=== PATIENT | male | born 1955 | race Caucasian/White ===

== ENCOUNTER 2019-09-28 06:24 | Day surgery (SDC) | payer OTHER ==
[~2019-09-28] VITALS: Ht 188 cm; Wt 170.9 kg
[2019-09-28] VITALS (10 sets, daily range): BP systolic 101–148; BP diastolic 62–81
[~2019-09-28 06:24] MED LIST: ALLO300T2 PO; APIX5TAB PO; BUDE10.2 IH; FAMO20TA8 PO; INDO50CA97 PO; IPRAHFA IH; IPRNEB IH; LOSA50TA2 PO; METO50 PO; SODIUM CHLORIDE 0.9% 1000ML 1,000 ML IV ONE
[2019-09-28] MEDS ORDERED: FURO20TA4 PO (06:35)
[2019-09-28] MEDS ORDERED: ATROVENT HFA IH (06:35)
[2019-09-28] MEDS ORDERED: METO-391 PO (06:35)
[2019-09-28] MEDS ORDERED: AMIO200T5 PO (06:35)
[2019-09-28] MEDS ORDERED: LOSA25TA41 PO (06:36)
[2019-09-28 07:01] LABS: BASOPHILS % (AUTO) 0.6 % (0.0-5.0); EOSINOPHILS % (AUTO) 4.8 % (0.0-8.0); LYMPHOCYTES % (AUTO) 26.9 % (21.0-51.0); MEAN CORPUSCULAR HEMOGLOBIN 30.3 pg (27.0-33.0); MEAN CORPUSCULAR HGB CONC 32.8 g/dL (32.0-36.0); MEAN CORPUSCULAR VOLUME 92.3 fL (79-99); MONOCYTES % (AUTO) 12.4 % (3.0-13.0); NEUTROPHILS % (AUTO) 54.5 % (40.0-77.0); PLATELET COUNT (AUTO) 243 K/uL (130-400); RED BLOOD CELL COUNT(AUTO) 5.09 MIL/uL (4.50-6.20); WHITE BLOOD COUNT (AUTO) 6.3 K/uL (4.8-10.8)
[2019-09-28 07:10] LABS: CREATININE 1.1 mg/dL (0.5-1.5); POTASSIUM 4.2 mmol/L (3.5-5.1)
[2019-09-28] MEDS ORDERED: METO-409 PO (07:13)
[2019-09-28] MEDS ORDERED: IPRNEB IH (07:13)
[2019-09-28] MEDS ORDERED: BUDE10.2 IH (07:13)
[2019-09-28 07:40] LABS: INR 0.99 (0.85-1.15); PARTIAL THROMBOPLASTIN TIME 29.4 SEC (26.3-35.5); PROTHROMBIN TIME 10.7 SEC (9.6-11.6)
--- NOTE | 2019-09-28 08:50 | NUR ---
TIMEOUT DR TOTH ARRIVED. TIMEOUT DONE WITH MD AND PATIENT. JERMAINE GAR CRNA AND DENNIS FRY RN ALSO IN THE ROOM.
--- NOTE | 2019-09-28 09:00 | NUR ---
PROCEDURE CARDIOVERSION PROCEDURE STARTED.
--- NOTE | 2019-09-28 09:18 | NUR ---
CARDIOVERSION CARDIOVERSION WITH ANESTHESIA PERFORMED AT BEDSIDE BY DR TOTH TIME OUT DONE AT 0850 START TIME 0900 EXTERNAL SHOCK TIME 200 JOULES AT 0904 PT DID NOT CONVERT EXTERNAL SHOCK TIME 360 JOULES AT 0905 PT CONVERTED PROCEDURE END TIME 09 RECOVERY STARTED AT 0918 PATIENT TOLERATED WELL WITH NO DISCOMFORT. PT V/S STABLE AND IN SINUS ANA. BOTH DR ALBERTO AND JERMAINE GAR CRNA LEFT ROOM AT 0920. SPOKE TO PATIENT AND FOLLOW UP PLAN.
--- NOTE | 2019-09-28 09:20 | NUR ---
MD DR TOTH OUT OF THE ROOM AND D/C ORDERS GIVEN. PT TO CONTINUE HOME MEDS, F/U IN 2 WKS AND MAY LEAVE AT 10 AM
--- NOTE | 2019-09-28 10:10 | NUR ---
DISCHARGE PT TAKEN OUT VIA W/C IN NO DISTRESS.
== END 2019-09-28 10:10 | disposition home or self-care (01) ==
LOC: DAH 06:24
PROVIDERS: ATTEND Internal Medicine Cardiovascular Disease
DX: I48.19 Other persistent atrial fibrillation (principal); G47.30 Sleep apnea, unspecified; I11.0 Hypertensive heart disease with heart failure; I50.9 Heart failure, unspecified; I25.10 Atherosclerotic heart disease of native coronary artery without angina pectoris; Z88.0 Allergy status to penicillin; Z79.01 Long term (current) use of anticoagulants; Z79.899 Other long term (current) drug therapy
CPT/HCPCS: 36415; 80048; 85025; 85610; 85730; 92960; 93005 ×2; A4215; A4216; A4221; A4222; A4223 ×3; A4606; A4663; J7030

== ENCOUNTER → 2020-01-02 | Outpatient (CLI) | payer OTHER ==
[~2020-01-02] MED LIST changes: +AMIO200T5 PO; +FURO20TA4 PO; -INDO50CA97 PO; -IPRAHFA IH; +LOSA25TA41 PO; -LOSA50TA2 PO; +METO-409 PO; -METO50 PO; -SODIUM CHLORIDE 0.9% 1000ML 1,000 ML IV ONE
== END | disposition home or self-care (01) ==
LOC: SHCH 09:06
PROVIDERS: ATTEND Internal Medicine Cardiovascular Disease
DX: I51.7 Cardiomegaly (principal); I50.22 Chronic systolic (congestive) heart failure
CPT/HCPCS: 93306; 93356

== ENCOUNTER 2021-03-13 06:21 | Day surgery (SDC) | payer BC ==
[2021-03-12 09:02] LABS: BASOPHILS % (AUTO) 0.4 % (0.0-5.0); EOSINOPHILS % (AUTO) 4.2 % (0.0-8.0); HEMATOCRIT 41.2 % (42-54); LYMPHOCYTES % (AUTO) 29.4 % (21.0-51.0); MEAN CORPUSCULAR HEMOGLOBIN 31.2 pg (27.0-33.0); MEAN CORPUSCULAR HGB CONC 32.5 g/dL (32.0-36.0); MONOCYTES % (AUTO) 12.7 % (3.0-13.0); NEUTROPHILS % (AUTO) 52.5 % (40.0-77.0); PLATELET COUNT (AUTO) 249 K/uL (130-400); RED BLOOD CELL COUNT(AUTO) 4.29 MIL/uL (4.50-6.20); RED CELL DISTRIBUTION WIDTH 14.7 % (11.0-15.5); WHITE BLOOD COUNT (AUTO) 4.8 K/uL (4.8-10.8)
[2021-03-12 09:12] LABS: INR 1.04 (0.85-1.15); PROTHROMBIN TIME 11.3 SEC (9.6-11.6)
[2021-03-12 09:13] LABS: PARTIAL THROMBOPLASTIN TIME 29.1 SEC (26.3-35.5)
[2021-03-12 09:16] LABS: CREATININE 1.1 mg/dL (0.5-1.5); POTASSIUM 4.3 mmol/L (3.5-5.1)
[~2021-03-13] VITALS: Ht 188 cm; Wt 170.2 kg
[2021-03-13] VITALS (8 sets, daily range): BP systolic 120–151; BP diastolic 67–94
[~2021-03-13 06:21] MED LIST changes: -AMIO200T5 PO; +AMIO200T68 PO; -IPRNEB IH
[2021-03-13] MEDS ORDERED: LIDOCAINE PF 100MG/5ML (2%) SYRINGE 5ML ONE (07:59)
[2021-03-13] MEDS ORDERED: PROPOFOL 10 MG/ML 20ML VIAL IV ONE ×2 (07:59→08:29)
[2021-03-13] MEDS ORDERED: MIDAZOLAM HCL 1 MG/ML 2ML VIAL ONE (07:59)
[2021-03-13] MEDS ORDERED: 0.9%NACL 1000ML 1,000 ML IV SCH (08:00)
== END 2021-03-13 09:35 | disposition home or self-care (01) ==
LOC: DAH 06:21
PROVIDERS: ATTEND Internal Medicine Cardiovascular Disease
DX: I48.19 Other persistent atrial fibrillation (principal); Z20.822 Contact with and (suspected) exposure to COVID-19; R00.1 Bradycardia, unspecified; I10 Essential (primary) hypertension; I25.10 Atherosclerotic heart disease of native coronary artery without angina pectoris; G47.30 Sleep apnea, unspecified; E66.01 Morbid (severe) obesity due to excess calories; K21.9 Gastro-esophageal reflux disease without esophagitis; Z79.01 Long term (current) use of anticoagulants; Z88.0 Allergy status to penicillin; Z98.890 Other specified postprocedural states; Z86.73 Personal history of transient ischemic attack (TIA), and cerebral infarction without residual deficits; Z86.19 Personal history of other infectious and parasitic diseases; Z68.42 Body mass index [BMI] 45.0-49.9, adult; Z79.899 Other long term (current) drug therapy
CPT/HCPCS: 36415; 80048; 85025; 85610; 85730; 87635; 92960; 93005 ×2; A4215; A4216; A4221; A4222; A4223 ×3; A4606; A4663; C9803; J2001; J2250; J2704 ×2; J7030; 99156; 99157

== ENCOUNTER → 2023-03-05 | Outpatient (CLI) | payer MEDICARE | END | disposition home or self-care (01) | LOC: SHCH 14:13 | PROVIDERS: ATTEND Internal Medicine Cardiovascular Disease | DX: I48.91 Unspecified atrial fibrillation (principal) | CPT/HCPCS: 93306 ==

== ENCOUNTER 2023-05-12 05:59 | Observation (INO) | payer MEDICARE ==
[2023-05-06 09:07] LABS: BASOPHILS # (AUTO) 0.02 K/uL (0.00-0.20); BASOPHILS % (AUTO) 0.3 % (0.0-5.0); EOSINOPHILS # (AUTO) 0.21 K/uL (0.00-0.70); EOSINOPHILS % (AUTO) 3.4 % (0.0-8.0); HEMATOCRIT 42.3 % (42-54); IMMATURE GRANULOCYTE ABSOLUTE 0.03 K/uL (0-1); LYMPHOCYTES # (AUTO) 1.2 K/uL (1.0-4.8); LYMPHOCYTES % (AUTO) 19.6 % (21.0-51.0); MEAN CORPUSCULAR HEMOGLOBIN 32.4 pg (27.0-33.0); MEAN CORPUSCULAR HGB CONC 34.3 g/dL (32.0-36.0); MEAN CORPUSCULAR VOLUME 94.6 fL (79-99); MONOCYTES # (AUTO) 0.7 K/uL (0.1-1.0); MONOCYTES % (AUTO) 11.2 % (3.0-13.0); PLATELET COUNT (AUTO) 223 K/uL (130-400); RED BLOOD CELL COUNT(AUTO) 4.47 MIL/uL (4.50-6.20); RED CELL DISTRIBUTION WIDTH 15.5 % (11.0-15.5); WHITE BLOOD COUNT (AUTO) 6.2 K/uL (4.8-10.8)
[2023-05-06 09:11] VITALS: BP 112/60; PULSE 71; RESP 18
[2023-05-06 09:13] LABS: CREATININE 1.1 mg/dL (0.5-1.5); POTASSIUM 3.9 mmol/L (3.5-5.1)
[2023-05-06 09:15] LABS: INR 0.95 (0.85-1.15); PROTHROMBIN TIME 11.1 SEC (9.6-11.6)
[2023-05-06 09:16] LABS: PARTIAL THROMBOPLASTIN TIME 37.6 SEC (26.3-35.5)
[2023-05-12] VITALS (28 sets, daily range): BP systolic 80–119; BP diastolic 47–73; PULSE 59–72; RESP 10–20; O2SAT 94–96
[~2023-05-12] VITALS: Ht 188 cm; Wt 146.2 kg
[~2023-05-12 05:59] MED LIST changes: -BUDE10.2 IH; -FAMO20TA8 PO; +FAMO40TA7 PO; -LOSA25TA41 PO; +LOSA50TA64 PO; +METH-386 PO; +METO-408 PO; -METO-409 PO; +NIFE-39 PO; +ROSU10TA28 PO
[2023-05-12] MEDS ORDERED: 0.9%NACL 1000ML 1,000 ML IV ONE (06:47)
[2023-05-12] MEDS ORDERED: MIDAZOLAM HCL 1 MG/ML 2ML VIAL ONE (06:58)
[2023-05-12] MEDS ORDERED: DEXAMETHASONE SOD PHOSPHATE 10MG/ML 1ML VIAL ONE (06:58)
[2023-05-12] MEDS ORDERED: PHENYLEPHRINE HCL 10 MG/ML 1ML VIAL IV ONE ×2 (06:58→12:15)
[2023-05-12] MEDS ORDERED: SUCCINYLCHOLINE CHLORIDE 20 MG/ML 10 ML VIAL ONE (06:58)
[2023-05-12] MEDS ORDERED: LIDOCAINE PF 100MG/5ML (2%) SYRINGE 5ML ONE (06:58)
[2023-05-12] MEDS ORDERED: NEOSTIGMINE 5MG/5ML SYR IV ONE (06:59)
[2023-05-12] MEDS ORDERED: PROPOFOL 10 MG/ML 20ML VIAL IV ONE (06:59)
[2023-05-12] MEDS ORDERED: ROCURONIUM 10MG/1ML SYR 10 MG/ML ML ONE (06:59)
[2023-05-12] MEDS ORDERED: GLYCOPYRROLATE 1 MG/5 ML SYRINGE ONE (06:59)
[2023-05-12] MEDS ORDERED: EPHEDRINE SULFATE 50 MG/ML AMPULE ONE ×2 (06:59→15:19)
[2023-05-12] MEDS ORDERED: ONDANSETRON 4MG INJ ONE ×2 (06:59→15:04)
[2023-05-12] MEDS ORDERED: FENTANYL CITRATE PF 50 MCG/1 ML 2ML VIAL ONE (07:00)
[2023-05-12 07:05] LABS: POTASSIUM 3.8 mmol/L (3.5-5.1)
[2023-05-12] MEDS ORDERED: HEPARIN 10,000 UNIT/10ML (1,000 UNIT/ML) VIAL ONE ×4 (07:15→12:13)
[2023-05-12] MEDS ORDERED: LIDOCAINE HCL 400MG/20ML VIAL ONE (07:39)
[2023-05-12] MEDS ORDERED: IOHEXOL-350 50ML VIAL IV ONE (08:41)
[2023-05-12] MEDS ORDERED: SUGAMMADEX SODIUM 200 MG/2 ML VIAL IV ONE (12:02)
[2023-05-12] MEDS ORDERED: ROCURONIUM BROMIDE 10MG/1ML 5ML VL ONE (12:04)
[2023-05-12] MEDS ORDERED: PROTAMINE SULFATE 10 MG/ML 25ML VIAL IV ONE (13:27)
[2023-05-12] MEDS ORDERED: IPRATROPIUM/ALBUTEROL SULFATE 3 ML SOLUTION IH ONE (14:40)
[2023-05-12] MEDS ORDERED: MEPERIDINE-PF 25 MG/ML SYG ONE (15:05)
[2023-05-12] MEDS ORDERED: PANTOPRAZOLE 40 MG TAB DR PO SCH (15:30)
[2023-05-12] MEDS ORDERED: LEVOFLOXACIN 750 MG/D5W 150ML BAG IV SCH (16:30)
[2023-05-12] MEDS: SUCRALFATE 1 GM TABLET PO SCH ×2 (16:42→20:24)
[2023-05-12] MEDS: FUROSEMIDE 20 MG TABLET PO SCH (20:26)
[2023-05-12] MEDS: APIXABAN 5 MG TABLET PO SCH (20:26)
[2023-05-12] MEDS: LOSARTAN 50 MG TABLET PO SCH (20:30)
[2023-05-12] MEDS: METHIMAZOLE 10 MG TAB PO SCH (20:31)
[2023-05-12] MEDS ORDERED: NON-FORMULARY MEDICATION 1 EACH (Rosuvastatin Calcium 10 MG) PO SCH (21:00)
[2023-05-12] MEDS ORDERED: NON-FORMULARY MEDICATION 1 EACH (Methimazole 5 MG) PO SCH (21:00)
[2023-05-12] MEDS ORDERED: ROSUVASTATIN 10MG PO SCH (21:00)
[2023-05-13] VITALS: BP 104/58; PULSE 68; RESP 20
[2023-05-13 00:39] LABS: COVID19 (SARS ANTIGEN RAPID) PRESUMPTIVE NEGATIVE (NEGATIVE); INFLUENZA TYPE A Negative For Type A (NEGATIVE); INFLUENZA TYPE B Negative For Type B (NEGATIVE)
[2023-05-13] MEDS: SUCRALFATE 1 GM TABLET PO SCH ×3 (03:34→14:54)
[2023-05-13 03:53] LABS: BASOPHILS # (AUTO) 0.01 K/uL (0.00-0.20); BASOPHILS % (AUTO) 0.1 % (0.0-5.0); HEMATOCRIT 37.2 % (42-54); IMMATURE GRANULOCYTE ABSOLUTE 0.04 K/uL (0-1); LYMPHOCYTES # (AUTO) 0.8 K/uL (1.0-4.8); MEAN CORPUSCULAR HGB CONC 33.3 g/dL (32.0-36.0); MEAN CORPUSCULAR VOLUME 96.1 fL (79-99); MONOCYTES # (AUTO) 0.7 K/uL (0.1-1.0); MONOCYTES % (AUTO) 9.8 % (3.0-13.0); NEUTROPHILS # (AUTO) 5.9 K/uL (1.8-7.7); NEUTROPHILS % (AUTO) 78.6 % (40.0-77.0); PLATELET COUNT (AUTO) 226 K/uL (130-400); RED BLOOD CELL COUNT(AUTO) 3.87 MIL/uL (4.50-6.20); RED CELL DISTRIBUTION WIDTH 15.6 % (11.0-15.5); WHITE BLOOD COUNT (AUTO) 7.6 K/uL (4.8-10.8)
[2023-05-13 04:00] VITALS: BP 107/63; PULSE 58; RESP 19
[2023-05-13 04:04] LABS: CREATININE 1.1 mg/dL (0.5-1.5); MAGNESIUM 1.7 mg/dL (1.80-2.40); PHOSPHORUS 3.3 mg/dL (2.5-4.9); POTASSIUM 4.1 mmol/L (3.5-5.1)
[2023-05-13] MEDS: FUROSEMIDE 20 MG TABLET PO SCH (07:57)
[2023-05-13] MEDS: APIXABAN 5 MG TABLET PO SCH (07:57)
[2023-05-13] MEDS: METHIMAZOLE 10 MG TAB PO SCH (07:59)
[2023-05-13 08:00] VITALS: BP 93/53; PULSE 54; RESP 17
[2023-05-13] MEDS ORDERED: FAMOTIDINE 20MG TAB PO SCH (09:00)
[2023-05-13] MEDS ORDERED: ALLOPURINOL 300 MG TABLET PO SCH (09:00)
[2023-05-13] MEDS ORDERED: METOPROLOL SUCCINATE 25 MG TAB.SR.24H PO SCH (09:00)
[2023-05-13] MEDS ORDERED: PANTOPRAZOLE 40 MG TAB DR PO SCH (09:00)
[2023-05-13] MEDS: LOSARTAN 50 MG TABLET PO SCH (09:00)
[2023-05-13] MEDS ORDERED: NIFEDIPINE ER 30 MG TAB PO SCH (09:00)
[2023-05-13] MEDS ORDERED: NIFEDIPINE 60 MG PO SCH (09:00)
[2023-05-13] MEDS ORDERED: NON-FORMULARY MEDICATION 1 EACH (Famotidine 40 MG) PO SCH (09:00)
[2023-05-13] MEDS ORDERED: MAGNESIUM 2GM PREMIX 50ML 50 ML IV PRN (11:00)
[2023-05-13 12:00] VITALS: BP 91/58; PULSE 50; RESP 18
[2023-05-13] MEDS ORDERED: CARAL PO (12:33)
[2023-05-13] MEDS ORDERED: LEVO750T39 PO (13:36)
[2023-05-13] MEDS ORDERED: SYMBICORT 160-4.5 MCG INHALER IH SCH (21:00)
== END 2023-05-13 15:43 | disposition home or self-care (01) ==
LOC: DAH 05:59 → DAHIP 06:00 → DAH 06:00 → 2AH 16:06
PROVIDERS: ADMIT Internal Medicine Cardiovascular Disease; ATTEND Internal Medicine Cardiovascular Disease
DX: I48.0 Paroxysmal atrial fibrillation (principal); Z20.822 Contact with and (suspected) exposure to COVID-19; E66.01 Morbid (severe) obesity due to excess calories; I10 Essential (primary) hypertension; M10.9 Gout, unspecified; E78.5 Hyperlipidemia, unspecified; E03.2 Hypothyroidism due to medicaments and other exogenous substances; T46.2X5A Adverse effect of other antidysrhythmic drugs, initial encounter; I42.9 Cardiomyopathy, unspecified; J45.909 Unspecified asthma, uncomplicated; Z68.41 Body mass index [BMI] 40.0-44.9, adult; Z88.0 Allergy status to penicillin; Z96.643 Presence of artificial hip joint, bilateral; Y92.89 Other specified places as the place of occurrence of the external cause
CPT/HCPCS: 80048 ×3; 85025 ×2; 85610; 85730; 36415 ×3; 93656; 93657; 96365; 87804 ×2; 87426; 71045 ×2; 94640; 96366; 96367; 83735; 84100; 83605; 84145; A4344; C1894 ×4; C1732 ×2; C1731; A4649 ×2; C1766; G0378 ×25; J3010; J3490 ×5; J1100; J2710; J1956; J0330; J7030; J2720; J2001; J1644 ×5; J2250; J2704; J2405 ×2; J2175; J2371 ×2; Q9967; A4215; A4223; A4222; A4221; A4663; J3475; 93655

== ENCOUNTER 2025-03-07 06:25 | Day surgery (SDC) | payer MEDICARE ==
[2025-03-03 13:18] LABS: IMMATURE GRANULOCYTE ABSOLUTE 0.01 K/uL (0-1); NUCLEATED RED BLOOD CELLS 0.0 % (0.0-0.19); PLATELET COUNT (AUTO) 216 K/uL (130-400); RED BLOOD CELL COUNT(AUTO) 3.98 MIL/uL (4.50-6.20); RED CELL DISTRIBUTION WIDTH 13.5 % (11.0-15.5); WHITE BLOOD COUNT (AUTO) 3.8 K/uL (4.8-10.8)
[2025-03-03 13:24] LABS: CREATININE 0.9 mg/dL (0.5-1.3); GLOMERULAR FILTR. RATE CALC 94.0 mL/min (>90); GLUCOSE,RANDOM 85.0 mg/dL (70-105); SODIUM SERUM 138.0 mmol/L (136-145); UREA NITROGEN, BLOOD 15.0 mg/dL (7-18)
[2025-03-03 13:25] VITALS: BP 142/77; PULSE 65; RESP 18; TEMP 98.4
[2025-03-03 13:27] LABS: INR 1.08 (0.85-1.15)
[~2025-03-07] VITALS: Ht 188 cm; Wt 140.1 kg
[~2025-03-07 06:25] MED LIST changes: -AMIO200T68 PO; +BUDE10.26 IH; +DRON400T7 PO; -METH-386 PO; -NIFE-39 PO; -ROSU10TA28 PO; +ROSU10TA72 PO
[2025-03-07] MEDS ORDERED: 0.9%NACL 1000ML 1,000 ML IV SCH (06:30)
[2025-03-07 06:50] VITALS: BP 144/84; PULSE 60; RESP 15; TEMP 98.4
--- NOTE | 2025-03-07 08:25 | NUR ---
DR. DALLAS ARRIVED I DID ASK HIM ABOUT USING ANESTHESIA PER HIS ORDER IT WAS CHECKED OFF HE TOLD ME NO WE WILL DO MODERATE SEDATION. VERSED AND FENTANYL OVERRIDDEN IN OMNICELL 6MG VERSED 200 MCG FENTANYL.
--- NOTE | 2025-03-07 09:00 | NUR ---
I DID OVER RIDE 4MG MORE OF VERSED PER DR. DALLAS VERBAL ORDER. MEDICATIONS WERE NOT USED FOR SEDATION AFTER.
--- NOTE | 2025-03-07 09:02 | NUR ---
PT CARDIOVERTED [address] DALLAS PT TOLERATED WELL NAD VSS. PT DID REMAIN AWAKE DURING CARDIOVERSION
[2025-03-07 09:05] VITALS: BP 137/86; PULSE 69; RESP 15; TEMP 97.8
[2025-03-07 09:15] VITALS: BP 130/74; PULSE 69; RESP 14
[2025-03-07] MEDS: MIDAZOLAM HCL 1 MG/ML 2ML VIAL ONE ×2 (09:25→09:28)
--- NOTE | 2025-03-07 09:26 | PRN ---
Procedure: MELISSA Procedure Note Procedure Note: Direct Current Cardioversion Date of Procedure: Mar 07, 2025 Referring Physician: Dr. Echeverria Procedures Performed: [DC cardioversion with moderate sedation] Indications for Procedure: Paroxysmal atrial fibrillation, on anticoagulation Description of Procedure: Informed consent was obtained after explaining the procedural risks, benefits, and alternatives in detail. A functioning peripheral IV was then ensured, and ECG, blood pressure, and oxygen saturation monitoring were initiated. Self- adhesive external defibrillation pads were placed on the patient and a timeout was performed. Conscious sedation was administered, [6 ]mg of Versed and [200]mcg of Fentanyl. Once the patient was sedated we successfully performed synchronized DC cardioversion using [150]J of energy. Follow-up ECG confirmed a sinus rate, with a heart rate of [ 47]bpm. Estimated Blood Loss: [None] Complications: [None] Conclusion: 1. Paroxysmal atrial fibrillation, on anticoagulation, status post successful DC cardioversion, resulting in a sinus rhythm Recommendations/Instructions: 1. Continue goal-directed medical therapy 2. Continue Multaq 400 mg b.i.d. and metoprolol succinate 12.5 mg daily 3. Follow up with Dr. Echeverria as previously scheduled 4. Okay to DC in 2 hours, once sedation wears off INEZ ECHEVERRIA MD Mar 07, 2025 09:26
[2025-03-07 09:30] VITALS: BP 132/80; PULSE 64; RESP 15
--- NOTE | 2025-03-07 09:44 | EKG ---
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
[2025-03-07 09:45] VITALS: BP 137/86; PULSE 68; RESP 15
--- NOTE | 2025-03-07 10:15 | NUR ---
PT TAKEN OUTSIDE VIA WHEELCHAIR INSTRUCTIONS GIVEN TO BOTH PT AND SPOUSE PHILLIP. IV WAS REMOVED PRIOR SITE ASYMPTOMATIC
--- NOTE | 2025-03-07 10:31 | EKG ---
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
== END 2025-03-07 10:20 | disposition home or self-care (01) ==
LOC: DAH 06:25
PROVIDERS: ATTEND Internal Medicine Cardiovascular Disease
DX: I48.0 Paroxysmal atrial fibrillation (principal); I25.2 Old myocardial infarction; R00.1 Bradycardia, unspecified; I42.9 Cardiomyopathy, unspecified; I11.0 Hypertensive heart disease with heart failure; I50.22 Chronic systolic (congestive) heart failure; E66.01 Morbid (severe) obesity due to excess calories; G47.33 Obstructive sleep apnea (adult) (pediatric); Z68.41 Body mass index [BMI] 40.0-44.9, adult
CPT/HCPCS: 80048; 85025; 85610; 85730; 36415; 92960; 99152; 99153; 93005 ×2; J3010; J2250; A4620; A4215; A4222; A4221; A4663; A4216; A4606; A4223 ×3; G0500

== ENCOUNTER → 2025-04-21 | Outpatient (CLI) | payer MEDICARE ==
[~2025-04-21] MED LIST changes: +IOHEXOL 350 MG/ML 100ML INFUS..BTL IV ONE; -ROSU10TA72 PO; +ROSU10TA98 PO
--- NOTE | 2025-04-22 18:15 | HMCIMG ---
EXAM: CTA Chest with Intravenous Contrast for PE Evaluation CLINICAL HISTORY: CTA A-FIB NAVNEET PROTOCOL TECHNIQUE: Axial CTA images of the chest were obtained following intravenous contrast administration using a pulmonary embolism protocol. Multiplanar reformatted images were generated and reviewed. CONTRAST: Nonionic iodinated contrast administered without incident. COMPARISON: None provided. FINDINGS: PULMONARY ARTERIES: Main pulmonary artery is enlarged, measuring 3.7 cm in diameter. No evidence of central or segmental pulmonary thromboembolism. AORTA: Normal calibre of thoracic aorta without aneurysm or dissection. Calcific atherosclerosis noted involving thoracic aorta and coronary circulation. LUNGS: Mild peripheral bronchiolitis changes in the left upper lobe (medial segment), right middle lobe, and inferior lingula. Scattered pulmonary micronodules measuring up to 3 mm identified in both lungs. No consolidation or collapse. PLEURAL SPACES: No pleural effusion or pneumothorax. HEART: Heart mildly enlarged. No pericardial effusion. LYMPH NODES: No mediastinal, hilar, or axillary lymphadenopathy. BONES: No focal osseous lesion or acute fracture. UPPER ABDOMEN: Visualised portions show fatty infiltration of the liver. No other significant abnormality. IMPRESSION: * No evidence of pulmonary thromboembolism. * Main pulmonary artery dilated to 3.7 cm, suggestive of pulmonary arterial hypertension. * Calcific atherosclerosis involving thoracic aorta and coronary arteries. No aortic aneurysm or dissection. * Mild peripheral bronchiolitis in left upper lobe, right middle lobe, and lingula. No focal infiltrates. No pleural effusions. * Scattered sub-3 mm pulmonary micronodules bilaterally, likely post-inflammatory. * Fatty liver. /Trego
== END | disposition home or self-care (01) ==
LOC: RAH 07:59
PROVIDERS: ATTEND Internal Medicine Cardiovascular Disease
DX: I48.19 Other persistent atrial fibrillation (principal); I25.10 Atherosclerotic heart disease of native coronary artery without angina pectoris; I51.7 Cardiomegaly; I70.0 Atherosclerosis of aorta; K76.0 Fatty (change of) liver, not elsewhere classified; J21.9 Acute bronchiolitis, unspecified; R91.8 Other nonspecific abnormal finding of lung field
CPT/HCPCS: 71275; Q9967